=== PATIENT | male | born 1950 | race Caucasian/White ===

== ENCOUNTER → 2024-03-11 07:15 | Outpatient (REF) | payer OTHER, SELFPAY ==
[2024-03-11 07:57] LABS: % Basophils 0.6 % (0-2); % Eosinophils 3.7 % (0-6); % Immature Granulocytes 0.3 % (0-0.5); % Lymphocytes 34.8 % (20.5-51.1); % Monocytes 6.4 % (1.7-9.3); % Neutrophils 54.2 % (42.2-75.2); Absolute Eosinophils 0.2 10^3/uL (0-0.7); Absolute Lymphocytes 2.3 10^3/uL (1.2-3.4); Absolute Monocytes 0.4 10^3/uL (0.1-0.6); Absolute Neutrophils 3.6 10^3/uL (1.4-6.5); Hematocrit 45.1 % (39.0-52.0); Hemoglobin 14.9 g/dL (13.0-18.0); Mean Corpuscular Hgb 30.2 pg (27.0-31.0); Mean Corpuscular Volume 91.5 fL (80.0-94.0); Mean Platelet Volume 9.1 fL (7.4-10.4); Nucleated Red Blood Cells % 0 % (-); Platelet Count 245 10^3/uL (130-400); Red Blood Cell Count 4.93 10^6/uL (4.70-6.10); White Blood Cell Count 6.6 10^3/uL (4.8-10.8)
[2024-03-11 07:59] LABS: Urine Albumin Trace (Neg - Trace); Urine Bilirubin 1+ (Negative); Urine Character Clear (Clear); Urine Color Yellow; Urine Glucose Negative (Negative); Urine Ketone Trace (Negative); Urine Leukocyte Trace (Negative); Urine Nitrite Negative (Negative); Urine Occult Blood Trace (Negative); Urine Specific Gravity 1.025 (<1.030); Urine Urobilinogen Negative (Neg - 1+)
[2024-03-11 08:10] LABS: Urine Mucus Many
[2024-03-11 08:12] LABS: Urine Red Blood Cell 0-2 /HPF (0-2)
[2024-03-11 08:13] LABS: Urine Bacteria Few (Negative); Urine Squamous Cell 0-2 /LPF (Few)
[2024-03-11 08:31] LABS: ALT (SGPT) 55 U/L (0-50); AST (SGOT) 40 U/L (17-59); Albumin 4.6 g/dl (3.5-5.0); Alkaline Phosphatase 57 U/L (38-126); Blood Urea Nitrogen 14 mg/dl (9-20); Calcium 9.6 mg/dl (8.4-10.2); Carbon Dioxide 30 mmol/L (22-30); Chloride 104 mmol/L (98-107); Glucose 104 mg/dl (70-99); HDL Cholesterol 35 mg/dl; LDL Cholesterol, Calculated 146 mg/dl; Potassium 4.7 mmol/L (3.5-5.1); Sodium 145 mmol/L (135-145); Total Bilirubin 0.7 mg/dl (0.2-1.3); Total Cholesterol 211 mg/dl (50-199); Total Protein 7.4 g/dl (6.3-8.2); Triglyceride 150 mg/dl (10-149); Very Low Density Lipoprotein 30 mg/dl (0-30); eGFR > 60.00
[2024-03-11 08:54] LABS: PSA, Total - Screen 3.18 ng/ml (0.0-4.0)
== END ==
LOC: REG 07:15
PROVIDERS: ATTENDING PHYSICIAN Internal Medicine Geriatric Medicine
DX: Z00.00 Encounter for general adult medical examination without abnormal findings (principal); R09.89 Other specified symptoms and signs involving the circulatory and respiratory systems; I10 Essential (primary) hypertension; E78.2 Mixed hyperlipidemia; Z12.5 Encounter for screening for malignant neoplasm of prostate; Z13.89 Encounter for screening for other disorder
CPT/HCPCS: 36415; 80053; 80061; 81003; 81015; 85025; G0103

== ENCOUNTER → 2024-03-18 08:48 | Outpatient (REF) | payer OTHER, SELFPAY ==
[2024-03-18 10:11] LABS: ALT (SGPT) 66 U/L (0-50); AST (SGOT) 45 U/L (17-59); GGTP 27 U/L (15-73)
== END ==
LOC: REG 08:48
PROVIDERS: ATTENDING PHYSICIAN Internal Medicine Geriatric Medicine
DX: R74.8 Abnormal levels of other serum enzymes (principal)
CPT/HCPCS: 36415; 82977; 84450; 84460

== ENCOUNTER → 2024-04-08 06:26 | Outpatient (REF) | payer OTHER, SELFPAY | LOC: HWRAD 06:26 | PROVIDERS: ATTENDING PHYSICIAN Internal Medicine Geriatric Medicine | DX: R74.8 Abnormal levels of other serum enzymes (principal) | CPT/HCPCS: 76700 ==

== ENCOUNTER → 2024-05-16 18:33 | Outpatient (REF) | payer OTHER, SELFPAY | LOC: MRI 3T 18:33 | PROVIDERS: ATTENDING PHYSICIAN Internal Medicine Geriatric Medicine | DX: K75.81 Nonalcoholic steatohepatitis (NASH) (principal); R74.8 Abnormal levels of other serum enzymes | CPT/HCPCS: 74183; A9581 ==

== ENCOUNTER → 2025-02-19 09:57 | Outpatient (REF) | payer OTHER, SELFPAY | LOC: HWRCS 09:57 | PROVIDERS: ATTENDING PHYSICIAN Internal Medicine Geriatric Medicine | DX: Z00.00 Encounter for general adult medical examination without abnormal findings (principal); R09.89 Other specified symptoms and signs involving the circulatory and respiratory systems; I10 Essential (primary) hypertension; E78.2 Mixed hyperlipidemia; Z13.89 Encounter for screening for other disorder; R01.1 Cardiac murmur, unspecified; Z83.49 Family history of other endocrine, nutritional and metabolic diseases; Z12.5 Encounter for screening for malignant neoplasm of prostate | CPT/HCPCS: 93306 ==

== ENCOUNTER → 2025-04-14 06:38 | Outpatient (REF) | payer OTHER, SELFPAY ==
[2025-04-14 08:04] LABS: PSA, Total - Screen 3.34 ng/ml (0.0-4.0)
[2025-04-16 02:07] LABS: ANA, IgG Reflex to HEp-2 Detected (None Detected)
[2025-04-17 07:59] LABS: ANA, HEp-2, IgG Detected (<1:80)
== END ==
LOC: REG 06:38
PROVIDERS: ATTENDING PHYSICIAN Internal Medicine Geriatric Medicine
DX: Z00.00 Encounter for general adult medical examination without abnormal findings (principal); R09.89 Other specified symptoms and signs involving the circulatory and respiratory systems; I10 Essential (primary) hypertension; E78.2 Mixed hyperlipidemia; Z13.89 Encounter for screening for other disorder; R01.1 Cardiac murmur, unspecified; Z83.49 Family history of other endocrine, nutritional and metabolic diseases; Z12.5 Encounter for screening for malignant neoplasm of prostate
CPT/HCPCS: 36415; 81256; 86038; 86039; G0103